=== PATIENT | male | born 1950 | race Caucasian/White ===

== ENCOUNTER 2024-03-22 22:50 | Inpatient (IN) | payer MEDICARE, MEDICAID ==
[~2024-03-22] VITALS: Ht 185.4 cm; Wt 84.8 kg
[2024-03-22] MEDS ORDERED: VANCOMYCIN 1 GM /D5W 250 ML PB IV ONE (23:25)
[2024-03-22] MEDS ORDERED: PIPERACI/TAZO 3.375GM/D5W 50ML PB IV ONE (23:25)
[2024-03-22 23:44] LABS: BASOPHILS % (AUTO) 0.2 % (0.0-2.0); EOSINOPHILS # (AUTO) 0.1 K/uL (0.0-0.7); EOSINOPHILS % (AUTO) 1.2 % (0.0-6.0); HEMATOCRIT 32 % (39-51); LYMPHOCYTES # (AUTO) 1.3 K/uL (0.8-4.8); LYMPHOCYTES % (AUTO) 13.9 % (20.0-44.0); MEAN CORPUSCULAR HEMOGLOBIN 32 PG (26.0-33.0); MEAN CORPUSCULAR HGB CONC 34 g/dl (31.0-36.0); MEAN CORPUSCULAR VOLUME 94 fL (80-96); MONOCYTES # (AUTO) 0.6 K/uL (0.1-1.30); MONOCYTES % (AUTO) 6.8 % (2.0-12.0); NEUTROPHILS # (AUTO) 7.5 K/uL (1.8-8.9); NEUTROPHILS % (AUTO) 77.9 % (43.0-81.0); PLATELET COUNT (AUTO) 275 K/uL (150-450); RED BLOOD CELL COUNT(AUTO) 3.42 MIL/uL (4.5-6.0); RED CELL DISTRIBUTION WIDTH 14.2 % (11.5-15.0); WHITE BLOOD COUNT (AUTO) 9.6 K/uL (4.3-11.0)
[2024-03-22] MEDS: IV NS 0.9% 1,000 ML BAG IV ONE (23:56)
[2024-03-22] MEDS: PIPERACILLIN /TAZOBACTAM 3.375 G in IV D5W 50 ML IV ONE (23:57)
[2024-03-23 00:01] LABS: INR 1.16 (0.91-1.10); PARTIAL THROMBOPLASTIN TIME 29.3 SEC (24.3-34.3); PROTHROMBIN TIME 12.2 SECS (9.2-11.1)
[2024-03-23 00:06] LABS: CALCIUM, SERUM 8.6 mg/dL (8.5-10.1); CARBON DIOXIDE 23 mmol/L (21-32); CHLORIDE 91 mmol/L (98-107); CREATININE 0.7 mg/dL (0.6-1.3); GLUCOSE 108 mg/dL (74-106); POTASSIUM 4.6 mmol/L (3.5-5.1); SODIUM SERUM 126 mmol/L (136-145); UREA NITROGEN, BLOOD 15 mg/dL (7-18)
[2024-03-23 00:10] LABS: ALANINE AMINOTRANSFERASE 69 U/L (12-78); ALBUMIN 2.2 g/dL (3.4-5.0); ALKALINE PHOSPHATASE 192 U/L (46-116); ASPARTATE AMINOTRANSFERASE 72 U/L (15-37); BILIRUBIN,DIRECT 0.1 mg/dL (0.0-0.2); BILIRUBIN,TOTAL 0.2 mg/dL (0.2-1.0); TOTAL PROTEIN, SERUM 8.3 g/dL (6.4-8.2)
[2024-03-23 00:27] LABS: LACTIC ACID 3.8 mmol/L (0.4-2.0)
[2024-03-23] MEDS: VANCOMYCIN 1 GM in IV D5W 250 ML IV ONE (01:00)
[2024-03-23] MEDS ORDERED: oxyCODONE/APAP (5/325 MG) 1 UDTAB TABLET ONE (01:01)
[2024-03-23] MEDS: oxyCODONE/APAP (5/325 MG) 1 UDTAB TABLET PO ONE (01:06)
[2024-03-23] MEDS ORDERED: MAGNESIUM HYDROXIDE 30 ML UDC PO PRN (01:30)
[2024-03-23] MEDS ORDERED: ACETAMINOPHEN 325 MG TABLET PO PRN (01:30)
[2024-03-23] MEDS ORDERED: ZOLPIDEM TARTRATE 5 MG TABLET PO PRN (01:30)
[2024-03-23 02:23] LABS: APPEARANCE,URINE SLIGHTLY CLOUDY (CLEAR); BILIRUBIN,URINE NEGATIVE (NEGATIVE); BLOOD, URINE NEGATIVE Ery/uL (NEGATIVE); COLOR,URINE YELLOW (YELLOW); KETONES,URINE NEGATIVE (NEGATIVE); LEUKOCYTE ESTERASE ,URINE 2+ (NEGATIVE); NITRITE, URINE NEGATIVE (NEGATIVE); PROTEIN,URINE NEGATIVE (NEGATIVE); UGLUCOSE NEGATIVE (NEGATIVE); UROBILINOGEN,URINE 0.2 EU/dL (0.2)
[2024-03-23] MEDS ORDERED: HYDROCODONE/APAP 10/325MG TABLET ONE (02:26)
[2024-03-23] MEDS: HYDROCODONE/APAP 10/325MG TABLET PO PRN (02:30)
[2024-03-23 02:40] LABS: YEAST,URINE Many /HPF (None Seen)
[2024-03-23 02:41] LABS: ADD URINE CULTURE YES; BACTERIA,URINE Few /HPF (None Seen); RBC,URINE 0-2 /HPF (0-2)
[2024-03-23 02:42] LABS: MUCUS,URINE Many /LPF (None Seen); SQUAMOUS EPITHELIAL CELL,UR Few /HPF (None Seen)
[2024-03-23] MEDS ORDERED: MAG HYDROX/AL HYDROX/SIMETH 30 ML UDC ONE (03:09)
[2024-03-23] MEDS: MAG HYDROX/AL HYDROX/SIMETH 30 ML UDC PO PRN (03:10)
[2024-03-23] MEDS: PIPERACILLIN /TAZOBACTAM 3.375 G in IV D5W 50 ML IV SCH (09:28)
[2024-03-23] MEDS: VANCOMYCIN 1 GM in IV D5W 250ml IV ONE (10:15)
[2024-03-23] MEDS: MORPHINE SULFATE INJ 2 MG/ML DISP.SYRIN IV PRN (14:35)
[2024-03-23] MEDS ORDERED: SILVER SULFADIAZINE CREAM 400 GM JAR TP SCH (17:30)
[2024-03-23] MEDS: DAKINS QUARTER STRENGTH (0.125%) 480 ML BOTTLE TOP SCH (17:50)
[2024-03-23 20:00] VITALS: BP 104/71; TEMP 97.9; O2SAT 98
[2024-03-23] MEDS: VANCOMYCIN HCL 1.25 GM in IV D5W 250 ML IV SCH (20:42)
[2024-03-23] MEDS: FLUCONAZOLE (100 MG) 100 MG TABLET PO SCH (21:37)
[2024-03-23] MEDS ORDERED: CEFEPIME 1 GM VIAL ONE (23:04)
[2024-03-23] MEDS: CEFEPIME 1 GM in IV D5W 50 ML IV SCH (23:10)
[2024-03-24 04:00] VITALS: BP 123/68; TEMP 98.6; O2SAT 99
[2024-03-24 07:55] LABS: BASOPHILS # (AUTO) 0.1 K/uL (0.0-0.2); BASOPHILS % (AUTO) 0.5 % (0.0-2.0); EOSINOPHILS # (AUTO) 0.3 K/uL (0.0-0.7); EOSINOPHILS % (AUTO) 2.8 % (0.0-6.0); HEMATOCRIT 28 % (39-51); HEMOGLOBIN 9.3 g/dL (13.5-17.5); LYMPHOCYTES # (AUTO) 1.1 K/uL (0.8-4.8); LYMPHOCYTES % (AUTO) 10.5 % (20.0-44.0); MEAN CORPUSCULAR HEMOGLOBIN 32 PG (26.0-33.0); MEAN CORPUSCULAR HGB CONC 33 g/dl (31.0-36.0); MEAN CORPUSCULAR VOLUME 95 fL (80-96); MONOCYTES # (AUTO) 0.9 K/uL (0.1-1.30); MONOCYTES % (AUTO) 8.6 % (2.0-12.0); NEUTROPHILS # (AUTO) 7.7 K/uL (1.8-8.9); NEUTROPHILS % (AUTO) 77.6 % (43.0-81.0); PLATELET COUNT (AUTO) 257 K/uL (150-450); RED BLOOD CELL COUNT(AUTO) 2.93 MIL/uL (4.5-6.0); RED CELL DISTRIBUTION WIDTH 14.4 % (11.5-15.0)
[2024-03-24] MEDS: ONDANSETRON HCL/PF 4 MG/2 ML VIAL IVP PRN (07:55)
[2024-03-24 08:00] VITALS: BP 131/74; TEMP 97.9; O2SAT 100
[2024-03-24 09:11] LABS: CALCIUM, SERUM 7.8 mg/dL (8.5-10.1); CARBON DIOXIDE 24 mmol/L (21-32); CHLORIDE 97 mmol/L (98-107); CREATININE 0.7 mg/dL (0.6-1.3); GLUCOSE 97 mg/dL (74-106); MAGNESIUM 2.2 mg/dL (1.8-2.4); PHOSPHORUS 2.9 mg/dL (2.5-4.9); POTASSIUM 4.1 mmol/L (3.5-5.1); SODIUM SERUM 130 mmol/L (136-145); UREA NITROGEN, BLOOD 15 mg/dL (7-18)
[2024-03-24] MEDS: CEFEPIME 1 GM in IV D5W 50 ML IV SCH (09:27)
[2024-03-24] MEDS: SILVER SULFADIAZINE CREAM 25 GM TUBE TP SCH (10:47)
[2024-03-24] MEDS: IV NS 0.9% 1,000 ML IV SCH (10:52)
[2024-03-24 20:00] VITALS: BP 116/73; TEMP 99; O2SAT 98
[2024-03-24] MEDS: VANCOMYCIN 1 GM in IV D5W 250 ML IV SCH (20:04)
[2024-03-24 22:05] LABS: INR 1.15 (0.91-1.10); PARTIAL THROMBOPLASTIN TIME 32.3 SEC (24.3-34.3); PROTHROMBIN TIME 12.1 SECS (9.2-11.1)
[2024-03-24] MEDS: HEPARIN SODIUM, PORCINE 5000 UNITS/1 ML VIAL IV ONE (22:42)
[2024-03-24] MEDS ORDERED: HEPARIN INFUSION/D5W 500 ML IV ONE (22:42)
[2024-03-24] MEDS: HEPARIN INFUSION/D5W 500 ML IV PRN (23:02)
[2024-03-25 04:00] VITALS: BP 127/72; TEMP 98.1; O2SAT 98
[2024-03-25 06:36] LABS: CALCIUM, SERUM 8.2 mg/dL (8.5-10.1); CREATININE 0.7 mg/dL (0.6-1.3); MAGNESIUM 1.9 mg/dL (1.8-2.4); PHOSPHORUS 3.2 mg/dL (2.5-4.9); POTASSIUM 3.7 mmol/L (3.5-5.1)
[2024-03-25 06:54] LABS: THYROID STIMULATING HORMONE 2.39 uIU/mL (0.358-3.74); URIC ACID 3.4 mg/dL (2.6-7.2)
[2024-03-25 07:06] LABS: INR 1.18 (0.91-1.10); PROTHROMBIN TIME 12.4 SECS (9.2-11.1)
[2024-03-25 07:19] LABS: PARTIAL THROMBOPLASTIN TIME 106.1 SEC (24.3-34.3)
[2024-03-25 08:00] VITALS: BP 117/72; TEMP 99; O2SAT 98
[2024-03-25] MEDS: ENOXAPARIN SODIUM 80 MG/0.8 ML DISP.SYRIN SQ SCH (09:50)
[2024-03-25 16:00] VITALS: BP 131/60; TEMP 98.4; O2SAT 97
[2024-03-25 20:00] VITALS: BP 108/69; TEMP 98.8
[2024-03-26 06:02] VITALS: BP 126/64; TEMP 98.4; O2SAT 97
[2024-03-26 07:57] LABS: CALCIUM, SERUM 8.2 mg/dL (8.5-10.1); CREATININE 0.5 mg/dL (0.6-1.3); POTASSIUM 3.7 mmol/L (3.5-5.1)
[2024-03-26 08:00] VITALS: BP 122/72; TEMP 99.2; O2SAT 97
[2024-03-26 16:00] VITALS: BP 112/71; TEMP 98.8; O2SAT 95
[2024-03-26 20:00] VITALS: BP 104/65; TEMP 98.2; O2SAT 96
[2024-03-26] MEDS: VANCOMYCIN 0.75 GM in IV D5W 250 ML IV SCH (21:00)
[2024-03-27 04:00] VITALS: BP 121/61; TEMP 98.2
[2024-03-27 07:31] LABS: BASOPHILS % (AUTO) 0.4 % (0.0-2.0); EOSINOPHILS # (AUTO) 0.2 K/uL (0.0-0.7); EOSINOPHILS % (AUTO) 2.5 % (0.0-6.0); HEMATOCRIT 24 % (39-51); HEMOGLOBIN 8.3 g/dL (13.5-17.5); LYMPHOCYTES # (AUTO) 1.3 K/uL (0.8-4.8); LYMPHOCYTES % (AUTO) 14.6 % (20.0-44.0); MEAN CORPUSCULAR HEMOGLOBIN 32 PG (26.0-33.0); MEAN CORPUSCULAR HGB CONC 35 g/dl (31.0-36.0); MEAN CORPUSCULAR VOLUME 92 fL (80-96); MONOCYTES # (AUTO) 0.9 K/uL (0.1-1.30); MONOCYTES % (AUTO) 9.3 % (2.0-12.0); NEUTROPHILS # (AUTO) 6.7 K/uL (1.8-8.9); NEUTROPHILS % (AUTO) 73.2 % (43.0-81.0); PLATELET COUNT (AUTO) 271 K/uL (150-450); RED CELL DISTRIBUTION WIDTH 14.1 % (11.5-15.0); WHITE BLOOD COUNT (AUTO) 9.2 K/uL (4.3-11.0)
[2024-03-27 07:41] LABS: CALCIUM, SERUM 8.7 mg/dL (8.5-10.1); CREATININE 0.6 mg/dL (0.6-1.3)
[2024-03-27] MEDS: THERAHONEY GEL 1.5 OZ TUBE TP SCH (18:00)
[2024-03-27 20:00] VITALS: BP 116/77; TEMP 98.7; O2SAT 97
[2024-03-28 07:46] LABS: CALCIUM, SERUM 8.3 mg/dL (8.5-10.1); CREATININE 0.6 mg/dL (0.6-1.3); POTASSIUM 4.3 mmol/L (3.5-5.1)
[2024-03-28 08:00] VITALS: BP 133/69; TEMP 98.6; O2SAT 97
[2024-03-28] MEDS: Z GUARD REMEDY 4 OZ OINT TP PRN (08:36)
[2024-03-28] MEDS ORDERED: CLIN300C12 PO (09:21)
[2024-03-28] MEDS ORDERED: ACET325T53 PO (09:21)
[2024-03-28] MEDS ORDERED: APIX5TAB4 PO (09:21)
[2024-03-28] MEDS ORDERED: FLUC100T8 PO (09:21)
[2024-03-28 16:29] VITALS: BP 128/67; TEMP 98.9; O2SAT 97
== END 2024-03-28 17:25 | DRG 602 ==
LOC: ER 23:01 → MEDSG1 03-23 07:16
PROVIDERS: ADMIT Internal Medicine; ATTEND Internal Medicine
DX: L03.115 Cellulitis of right lower limb (principal); L89.523 Pressure ulcer of left ankle, stage 3; E44.0 Moderate protein-calorie malnutrition; E87.20 Acidosis, unspecified; Z59.00 Homelessness unspecified; I82.413 Acute embolism and thrombosis of femoral vein, bilateral; I82.433 Acute embolism and thrombosis of popliteal vein, bilateral; B37.49 Other urogenital candidiasis; E87.1 Hypo-osmolality and hyponatremia; D68.59 Other primary thrombophilia; L03.116 Cellulitis of left lower limb; L89.626 Pressure-induced deep tissue damage of left heel; S91.012A Laceration without foreign body, left ankle, initial encounter; S91.011A Laceration without foreign body, right ankle, initial encounter; S91.312A Laceration without foreign body, left foot, initial encounter; S91.311A Laceration without foreign body, right foot, initial encounter; S81.812A Laceration without foreign body, left lower leg, initial encounter; S81.811A Laceration without foreign body, right lower leg, initial encounter; X58.XXXA Exposure to other specified factors, initial encounter; Y92.9 Unspecified place or not applicable; I87.8 Other specified disorders of veins; I87.2 Venous insufficiency (chronic) (peripheral); E88.09 Other disorders of plasma-protein metabolism, not elsewhere classified; Z79.01 Long term (current) use of anticoagulants; E86.9 Volume depletion, unspecified; D64.9 Anemia, unspecified; E86.1 Hypovolemia
CPT/HCPCS: 36415; 71045-TC; 73590-TC; 73620-TC; 80048-TC; 80076-TC; 80202-TC; 81001; 83605-TC; 83735-TC; 84100-TC; 84443-TC; 84484-TC; 84550-TC; 85025-TC; 85652-TC; 85730-TC; 86140-TC; 87040-TC; 87081-TC; 87086-TC; 93970-TC; 97110-TC; 97112-TC; 97530-TC; 97535-TC; A4223; A6253; A6403; G0378; J0692; J1644; J1650; J2270; J2405; J2543; J3370; J7030; J7040; J7060